=== PATIENT | female | born 1950 | race Two or more races ===

== ENCOUNTER 2018-10-18 05:48 | Day surgery (SDC) | payer OTHER ==
[~2018-10-18 05:48] MED LIST: ACTONEL5 MG PO; B-122500 MCG SL
== END 2018-10-18 19:20 | disposition home or self-care (01) ==
LOC: CIR.AMB 05:48
DX: R31.0 Gross hematuria (principal)

== ENCOUNTER → 2018-10-19 | Emergency (ER) | payer OTHER | END | disposition left against medical advice (07) | LOC: ER 17:23 | DX: Z53.20 Procedure and treatment not carried out because of patient's decision for unspecified reasons (principal) ==